=== PATIENT | male | born 1990 | race Caucasian/White ===

== ENCOUNTER 2019-12-22 07:05 | Day surgery (SDC) | payer OTHER ==
[~2019-12-22] VITALS: Ht 177.8 cm; Wt 70.1 kg
[2019-12-22] MEDS ORDERED: ACET325 PO (07:29)
--- NOTE | 2019-12-22 15:14 | NUR ---
12/22/19 1514 Mary Ann Molina SEDATION STARTED AT 0844. ATTEMPTED MULTIPLE TIMES TO PUT SCOPE IN BUT PT. WOULD MOVE. MORE SEDATION WAS GIVEN, PT. WOULD HAVE APNEIC PERIODS, THEN SHALLOW BREATHING, THEN WOULD BREATH NORMAL BUT THEN WOULD BE GIVEN SEDATION AGAIN & CONTINUE IN THE SAME PATTERN & PT. WOULD STILL MOVE WITH ATTEMPT OF PUTTING SCOPE DOWN. PER DR. HUTTON DECIDED NOT TO DO CASE AT 0904 & HE WOULD SEND PT. FOR SLEEP STUDY & THEN RESCHEDULE CASE.
== END 2019-12-22 09:42 | disposition home or self-care (01) ==
LOC: ORSCSDS 07:05
PROVIDERS: Internal Medicine Gastroenterology
PROC: 0DJ08ZZ Inspection of Upper Intestinal Tract, Via Natural or Artificial Opening Endoscopic (ICD-10-PCS; principal; 2019-12-22 08:30)
DX: R10.13 Epigastric pain (principal); K92.1 Melena; R11.0 Nausea; J45.909 Unspecified asthma, uncomplicated; R63.4 Abnormal weight loss; Z79.899 Other long term (current) drug therapy
CPT/HCPCS: J0461; J2001; J2250; J2405; J2704; J7120

== ENCOUNTER 2022-01-02 15:56 | Emergency (ER) | payer OTHER ==
[~2022-01-02] VITALS: Ht 180.3 cm; Wt 83.5 kg
[~2022-01-02 15:56] MED LIST: ACET325 PO; Kristalose20 GM PO; OMEP20ER PO
== END 2022-01-02 18:43 | disposition home or self-care (01) ==
LOC: ER 15:56
DX: R55 Syncope and collapse (principal); S02.2XXA Fracture of nasal bones, initial encounter for closed fracture; Z23 Encounter for immunization; W18.30XA Fall on same level, unspecified, initial encounter
CPT/HCPCS: 70450; 72125; 90471; 90714; 93005; 93010; 99284-25; A9270

== ENCOUNTER → 2022-05-30 | Outpatient (CLI) | payer OTHER | END | disposition home or self-care (01) | LOC: LAB 08:17 | DX: K62.9 Disease of anus and rectum, unspecified (principal) ==

== ENCOUNTER → 2024-07-13 | Outpatient (CLI) | payer OTHER | END | disposition home or self-care (01) | LOC: LAB SHORT 10:40 → LAB 10:40 | DX: Z30.8 Encounter for other contraceptive management (principal) ==